=== PATIENT | male | born 1970 | race Caucasian/White ===

== ENCOUNTER → 2021-06-17 | Outpatient (CLI) | payer BC ==
--- NOTE | 2021-06-18 08:31 | US ---
EXAMINATION TYPE: US scrotum with doppler. Grayscale and color Doppler Duplex imaging performed of candie lizarraga scrotum. DATE OF EXAM: 06/17/2021 COMPARISON: NONE CLINICAL HISTORY: N50.82 SCROTAL PAIN. bilateral testicle pain, worse on the right EXAM MEASUREMENTS: TESTICLES: Right Testicle: 5.4 x 2.4 x 3.7 cm Left Testicle: 5.0 x 2.3 x 3.5 cm EPIDIDYMIS HEAD: Right Epididymis: 1.2 cm Left Epididymis: 1.4 cm Doppler performed to assess for testicular vascularity; good bilateral color flow and waveforms are s een. There is no evidence of testicular torsion. Presence of hydroceles: yes, fluid collection medial to right testicle = 3.6cm and medial to left te sticle = 1.8cm Presence of varicoceles: no heterogeneous testes, worse on the right IMPRESSION: 1. Bilateral small hydroceles greater on the right. 2. Mild heterogeneity of the testicles is nonspecific appearance, can occasionally be associated with a mild orchitis correlate clinically.
== END | disposition home or self-care (01) ==
LOC: RADUSWWP 15:30
PROVIDERS: ATTEND Family Medicine
DX: N43.3 Hydrocele, unspecified (principal); N50.82 Scrotal pain
CPT/HCPCS: 76870; 93975

== ENCOUNTER → 2024-03-02 | Outpatient (CLI) | payer BC ==
--- NOTE | 2024-03-02 12:04 | XR ---
EXAMINATION TYPE: XR soft tissue neck DATE OF EXAM: 03/02/2024 11:21 AM COMPARISON: None CLINICAL INDICATION: Male, 53 years old with history of NECK STIFFNESS M43.6; [facility] TECHNIQUE: The soft tissues of the neck were imaged in frontal and lateral views. FINDINGS: The prevertebral soft tissues are unremarkable. There is no evidence of mass effect or trac heal deviation. No acute osseous abnormality demonstrated. No evidence of subglottic narrowing. IMPRESSION: No significant abnormality identified within the soft tissues of the neck. [facility], , 03/02/2024 12:01 PM
--- NOTE | 2024-03-02 12:05 | XR ---
EXAMINATION TYPE: XR cervical spine limited DATE OF EXAM: 03/02/2024 11:21 AM COMPARISON: CLINICAL INDICATION: Male, 53 years old with history of CHRON BILATERAL LW BK PN WITH BILAT SCIAT M54 .42 M25.69; [facility] TECHNIQUE: XR cervical spine limited, (1-2) views of the cervical spine FINDINGS: Or The osseous structures show normal alignment without evidence of an acute fracture. There are osteoph ytes noted throughout the cervical spine on the anterior and lateral aspects of the vertebral bodies. The intervertebral disk spaces are narrowed at multiple levels Pedicles are intact. Soft tissues ar e within normal limits. The odontoid appears intact. Nuchal ligament calcifications. IMPRESSION: 1. No fracture or dislocation. 2. Mild degenerative disc disease changes of the cervical spine. [facility], , 03/02/2024 12:02 PM
--- NOTE | 2024-03-02 12:06 | XR ---
EXAMINATION TYPE: XR thoracic spine 2V, XR lumbar spine 2 or 3V DATE OF EXAM: 03/02/2024 11:21 AM COMPARISON: None CLINICAL INDICATION: Male, 53 years old with history of CHRONIC BILATERAL LOW BACK PAIN M54.41 M25.69 ; [facility] TECHNIQUE: XR thoracic spine 2V, XR lumbar spine 2 or 3V views of the spine in Frontal and lateral pr ojections. Frontal and lateral views of the lumbar spine FINDINGS: No evidence of acute fracture. There is scattered multilevel disk space narrowing without loss of ve rtebral body height. There is normal alignment of the vertebral bodies. Scattered osteophyte formatio n along the anterior and lateral aspects of the vertebral bodies. Neural foramen are patent given segundo itations of this exam. Spinal canal appears patent. IMPRESSION: 1. No acute osseous pathology. 2. Mild multilevel degeneration changes of the spine. [facility], , 03/02/2024 12:04 PM
== END | disposition home or self-care (01) ==
LOC: RADXRMAIN 10:33
PROVIDERS: ATTEND Internal Medicine
DX: M51.16 Intervertebral disc disorders with radiculopathy, lumbar region (principal); M50.30 Other cervical disc degeneration, unspecified cervical region; M25.69 Stiffness of other specified joint, not elsewhere classified; M43.6 Torticollis
CPT/HCPCS: 70360; 72040; 72070; 72100

== ENCOUNTER 2024-09-20 07:02 | Day surgery (SDC) | payer BC ==
[2024-09-20] MEDS: IV FLUID CONTINUATION 1,000 ML IV ONE (07:18)
[2024-09-20 07:21] VITALS: TEMP 97.5
[2024-09-20] MEDS: LACTATED RINGERS 1,000 ML IV SCH (07:29)
[2024-09-20] MEDS ORDERED: LIDOCAINE 1% INJ 10MG/ML (20 ML MDV) ONE (08:15)
[2024-09-20] MEDS ORDERED: GLYCOPYRROLATE 0.2 MG/ML 2 ML VIAL ONE (08:15)
[2024-09-20] MEDS ORDERED: PROPOFOL 10 MG/ML 20 ML VIAL IV ONE (08:15)
--- NOTE | 2024-09-20 08:41 | P.PCN ---
Date of Procedure: 09/20/24 Procedure(s) Performed: Brief history: Patient is a pleasant 54-year-old white male scheduled for an elective upper endoscopy as well as colonoscopy as a part of evaluation of longstanding history of GERD and screening for colon cancer. He has longstanding history of GERD for almost 10 years duration has been on omeprazole 20 mg daily with good control of his symptoms. Procedure performed: Esophagogastroduodenoscopy with biopsy Colonoscopy Preoperative diagnosis: GERD Screening for colon cancer Anesthesia: MAC Procedure: After informed consent was obtained from the patient was brought into the endoscopy unit and IV sedation was administered by anesthesia under continuous monitoring. Initially upper endoscopy was done. The Olympus GF 160 video endoscope was inserted inserted into the mouth and esophagus intubated without any difficulty and was gradually advanced into the stomach and duodenum and carefully examined. The bulb and second part of the duodenum appeared normal. The scope was then withdrawn into the stomach adequately insufflated with air and upon careful examination the antrum and body, cardia and fundus appeared normal. The scope was then withdrawn into the esophagus. Small hiatal hernia noted. The GE junction was located at 40 cm to the incisors. It appeared i rregular with 1 superficial erosion consistent with LA grade a reflux esophagitis. Also there was short tongues of Gould's appearing mucosa extending to 3 mm proximal to the GE junction that was biopsied. Rest of the esophagus appeared normal. Patient tolerated the procedure well. At this time the patient continued to remain sedation. Initial digital rectal examination was normal. Olympus CF 160 video colonoscope was then inserted into the rectum and gradually advanced to the cecum without any difficulty. Careful examination was performed as the scope was gradually being withdrawn. The prep was excellent. The cecum, ascending colon, transverse colon, descending colon, sigmoid colon and rectum appeared normal. Retroflexion was performed in the rectum and no lesions were noted. Patient tolerated the procedure well. Impression: 1. Upper endoscopy revealed small hiatal hernia, LA grade A reflux esophagitis and short segment Gould's esophagus. 2. Colonoscopy was within normal limits with no evidence of colorectal neoplasia. Recommendations: Findings of this examination were discussed with the patient as well as his family. He was advised to follow-up with the biopsy results. If the biopsy confirms the presence of Gould's esophagus, he can have repeat upper endoscopy in 3 years. In the meantime he will continue with Prilosec 20 mg daily and follow antireflux measures. Recommended repeat screening colonoscopy in 10 years.
[2024-09-20 09:05] VITALS: BP 123/84; PULSE 58; RESP 16
== END 2024-09-20 09:24 | disposition home or self-care (01) ==
LOC: ORWHC2ENDO 07:02
PROVIDERS: ATTEND Internal Medicine Gastroenterology
DX: Z12.11 Encounter for screening for malignant neoplasm of colon (principal); K22.70 Barrett's esophagus without dysplasia; K21.00 Gastro-esophageal reflux disease with esophagitis, without bleeding; K44.9 Diaphragmatic hernia without obstruction or gangrene; Z79.899 Other long term (current) drug therapy
CPT/HCPCS: 88305; 45378; 43239; J2003; J2704; J1596